=== PATIENT | male | born 1965 | race African-American/Black ===

== ENCOUNTER 2019-04-23 16:48 | Emergency (ER) | payer BC ==
[~2019-04-23] VITALS: Ht 190.5 cm; Wt 131.5 kg
[~2019-04-23 16:48] MED LIST: [UNRECOGNIZED DRUG - REMARK] PO
--- NOTE | 2019-04-23 17:15 | NUR ---
PATIENT WAS MSE BY DR RANDOLPH IN ROOM 05A.
[2019-04-23] MEDS ORDERED: DEXAMETHASONE SOD PHOSPHATE 4 MG INJ IM ONE (17:30)
[2019-04-23] MEDS ORDERED: HYDROCODONE/APAP 5-325MG TABLET PO ONE (17:30)
[2019-04-23] MEDS ORDERED: HYDROCODONE/APAP 5-325MG TABLET ONE (17:35)
[2019-04-23] MEDS ORDERED: DEXAMETHASONE SOD PHOSPHATE 10 MG INJ ONE (17:35)
--- NOTE | 2019-04-23 18:03 | NUR ---
Patient discharged to home in stable conditon. Written and verbal after care instructions given. Patient verbalizes understanding of instructions.
[2019-04-23 18:04] VITALS: BP 127/75
== END 2019-04-23 18:07 | disposition home or self-care (01) ==
LOC: ER 16:48
DX: J02.0 Streptococcal pharyngitis (principal); I10 Essential (primary) hypertension; Z79.899 Other long term (current) drug therapy
CPT/HCPCS: 36415; 86403; 96372; 99283; J1100; A4663